=== PATIENT | female | born 1995 ===

== ENCOUNTER 2023-02-21 15:11 | Emergency (ER) | payer OTHER ==
[~2023-02-21] VITALS: Ht 162.6 cm; Wt 59.2 kg
[2023-02-21 16:04] VITALS: BP 110/77
[2023-02-21 16:40] LABS: Urine Bacteria NONE SEEN /hpf (None Seen); Urine Blood Negative /uL (Negative); Urine Mucus FEW (None Seen); Urine Specific Gravity 1.018 (1.001-1.035); Urine WBC 1 /hpf (0 - 5)
[2023-02-21] MEDS ORDERED: ONDANSETRON ODT 4 MG TAB PO ONE (16:45)
[2023-02-21] MEDS ORDERED: ONDA-144 PO (16:47)
[2023-02-21] MEDS ORDERED: AZITTAB PO (17:24)
[2023-02-21] MEDS ORDERED: BENZ1LOZ3 MT (17:24)
[2023-02-21] MEDS ORDERED: ACET1CAP14 PO (17:24)
== END 2023-02-21 19:09 | disposition home or self-care (01) ==
LOC: ER 15:11
DX: O99.511 Diseases of the respiratory system complicating pregnancy, first trimester (principal); Z3A.00 Weeks of gestation of pregnancy not specified; Z79.899 Other long term (current) drug therapy; Z20.822 Contact with and (suspected) exposure to COVID-19
CPT/HCPCS: 36415; 81001; 81025; 84702; 87070; 87426; 87804; 87880; 99283; Q0162; 87077; 87186